=== PATIENT | female | born 1955 | race Caucasian/White ===

== ENCOUNTER 2019-10-21 19:23 | Inpatient (IN) | payer MEDICARE, OTHER ==
[~2019-10-21] VITALS: Ht 152.4 cm; Wt 55.3 kg
--- NOTE | 2019-10-21 19:35 | NUR ---
Patient brought in via ambulance, from [facility] for Psych medical clearance. Pt has been placed on a 5150 hold for being gravely disabled. Pt was found in a busy traffic street, disoriented and confused, did not know where to go by the police officers. Work up done at [facility], aramisn was given in [place] for UTI. and sent here for psych admission. At this time, patient is awake, alert and verbally responsive. Pleasant and calm at this time. She is oriented x 1-2, to the year. She knows her name, but she wants to be referred to as "Prailing". Does not know where she is and states that she is here for a physical check up. All VS taken and stable. Not in acute respiratory distress. Respirations even and unlabored. No apparent Gi/Gu issues. No skin injuries noted. Fall and safety precautions in place. No suicidal or homicidal ideation at this time. Will continue to monitor.
--- NOTE | 2019-10-21 19:39 | NUR ---
Dr Siddiqui at bedside for MSE.
[2019-10-21] MEDS ORDERED: METF-442 PO (19:48)
[2019-10-21] MEDS ORDERED: SIMV-46 PO (19:48)
[2019-10-21] MEDS ORDERED: ZOLP5TAB8 PO (19:48)
[2019-10-21] MEDS ORDERED: LISI-603 PO (19:48)
--- NOTE | 2019-10-21 19:57 | NUR ---
MHU called for bed, 141 B available for patient. Pt is talking to herself at this time, but no apparent signs of agression to others or posing any danger to self. Will continue to monitor closely 1:1.
--- NOTE | 2019-10-21 20:04 | NUR ---
Patient medically cleared. Admitting MD: Dr. Reyes/Dr. Jake Blackwell. Report given to U for patient.
[2019-10-21] MEDS ORDERED: LORAZEPAM 0.5 MG TABLET PO PRN (20:15)
[2019-10-21] MEDS ORDERED: TEMAZEPAM 7.5 MG CAPSULE PO PRN (20:15)
[2019-10-21] MEDS ORDERED: BLOOD SUGAR DIAGNOSTIC 1 EACH STRIP VI ONE (20:15)
[2019-10-21] MEDS ORDERED: MAG HYDROX/AL HYDROX/SIMETH 30 ML LIQUID UDC PO PRN (20:15)
[2019-10-21] MEDS ORDERED: ACETAMINOPHEN 325 MG TABLET PO PRN (20:15)
[2019-10-21] MEDS ORDERED: MAGNESIUM HYDROXIDE 30 ML LIQUID UDC PO PRN (20:15)
--- NOTE | 2019-10-21 20:37 | NUR ---
Charge Nurse transported patient to MHU, in stable condition via wheelchair. All belongings with patient, listed and accounted for, no contrabands noted.
--- NOTE | 2019-10-21 20:45 | NUR ---
ADVISEMENT AND PATIENT'S RIGHT FOR MENTAL HEALTH IN A FACILITY BOOKLET WERE GIVEN TO PATIENT. SHE CONTINUE IRRITABLE, UNCOOPERATIVE AND UNABLE TO HAVE A MEANINGFUL CONVERSATION WITH PATIENT. WILL CONTINUE TO MONITOR.
[2019-10-21 20:56] VITALS: BP 175/74
--- NOTE | 2019-10-21 21:15 | NUR ---
DR. GRANADOS WAS PAGE RE:NEW ADMISSION AND TO RECONCILE PATIENT'S MEDICATIONS. AWAITING FOR A CALL BACK.
[2019-10-21] MEDS: LORAZEPAM 0.5 MG TABLET PO PRN (21:26)
--- NOTE | 2019-10-22 00:51 | NUR ---
GPS/ 5150 HOLD, NEW ADMIT 64/YRS OLD FEMALE ON 72HRS HOLD STARTING 10/20/2019 AT 1633 TO 10/23/2019 AT 1633. PT IS ASSIGNED TO DR. MALONE, AND CONFIRMED ADMISSION AT 2100. ADMITTING DX: PSYCHOSIS AND POSSIBLY MENTAL DISORDER HISTORY, PT GRAVELY DISABLE. PT IS HOMELESS AND WAS FOUND DISORIENTED WALKING IN AND OUT OF HEAVY TRAFFIC. PT WAS TRANSFER TO [facility] BY OFFICER AND PLACED ON HOLD. PT WAS TREATED WITH ROCEPHIN DUE TO UTI. HX DIAGNOSIS: HTN, DM, HYPERLIPEMIA. . PT ADMISSION PACKAGED AND ADVISEMENT GIVEN BUT PT VERY CONFUSE AND REFUSING INTERVIEW. WAS NOT ABLE TO ASSESS SKIN BUT NOTED SMALL SKIN SCAB ON LEFT LOWER ARM, PT APPEARS SUN TINT AND UNKEMPT. INITIAL BLOOD SUGAR 90/dl. PT REFUSED SHOWER AND WAS VERY RESTLESS, ANGRY AND UNCOOPERATIVE. ATIVAN 1MG WAS GIVEN ORDER PRN. PT A BIT CALM NOW, WILL CONTINUE MONITOR.
--- NOTE | 2019-10-22 06:52 | NUR ---
PT SLEPT FOR 6HRS, AWAKE AND WAS ANGRY OVER STAFFS, CONFUSE AND STILL REFUSED SHOWER. PT ALSO REFUSED MRSA NOSE SWAB.
[2019-10-22 07:30] VITALS: BP 129/67
[2019-10-22] MEDS: LORAZEPAM 0.5 MG TABLET PO PRN (14:48)
[2019-10-22] MEDS ORDERED: LORAZEPAM 2 MG/1 ML VIAL IM ONE (15:00)
[2019-10-22] MEDS ORDERED: HALOPERIDOL LACTATE 5 MG/1 ML VIAL IM ONE (15:00)
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
[2019-10-22] MEDS: SIMVASTATIN 20 MG TABLET PO SCH (21:00)
[2019-10-22] MEDS: TRAZODONE 50 MG TABLET GT SCH (21:00)
--- NOTE | 2019-10-23 02:12 | NUR ---
PATIENT RECEIVED IN BED AWAKE. PATIENT REFUSED VITAL SIGNS AND MEDICATION. PATIENT IS IN AND OUT OF SLEEP. SAFE ENVIRONMENT PROVIDED, FREQUENT ROUNDING, CLUTTER FREE ENVIRONMENT, AND BED ALARM ON WHILE IN BED.
[2019-10-23 07:30] VITALS: BP 122/52
[2019-10-23] MEDS: DIVALPROEX 250 MG TABLET.DR PO SCH ×3 (08:59→17:08)
[2019-10-23] MEDS: LISINOPRIL 20 MG TABLET PO SCH (08:59)
[2019-10-23] MEDS ORDERED: Medication Not On Formulary EA (Metformin Hcl 1,000 MG) PO SCH (09:00)
[2019-10-23] MEDS: METFORMIN HCL 500 MG TABLET PO SCH (09:07)
--- NOTE | 2019-10-23 10:16 | NUR ---
Social Work Family Contact: Patient does not have any family support/contact at this moment.
--- NOTE | 2019-10-23 10:16 | NUR ---
Social Work Initial Discharge Plan: Patient is homeless and does not have a place. Patient does not have any social support at the moment. composite worker will work with the patient and the MD regarding appropriate discharge planning. composite worker will form a safe and proper discharge.
--- NOTE | 2019-10-23 14:18 | NUR ---
Social Work Coordination of Care: leadite worker spoke with admin Lashay ([phone]) from [facility] that this teletypewriter installer sent in patient's H & P psychiatric notes, clinical notes, and medication list. Per Lashay, she will contact this teletypewriter installer.
[2019-10-23 16:00] VITALS: BP 158/75
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
--- NOTE | 2019-10-23 17:30 | NUR ---
Gps/Senior Medical Transcriptionist- Able to stay with her group this pm.Patient claimed her name is Angeliiline(prailine ice cream) and telling staff to not call her Michelle.Reoriented and redirected, ,irritable, gets rude, and tends to argue . Right forearm skin tears redressed, site cleansed with NS pat dry, xerofrom applied, dry dressing,tegaderm. Noted medicHad been in and out of the activity room.ations compliant with min.prompting.
[2019-10-23] MEDS: TRAZODONE 50 MG TABLET GT SCH (20:28)
[2019-10-23] MEDS: SIMVASTATIN 20 MG TABLET PO SCH (20:28)
[2019-10-23 20:31] VITALS: BP 161/75
--- NOTE | 2019-10-23 21:42 | NUR ---
GPS/ PT NOTED RESTING IN BED, ALERT AND RESPOND TO NAME. PT LATER AWAKE AND WAS NOTED HAVING VERBAL EXCHANGE WITH ROOM MATE, PT IS VERY CONFUSE, DENIED HER NAME, REQUESTING TO BE CALLED A DIFFERENT NAME. PT EASILY IRRITABLE AND VERY ARGUMENTATIVE. REDIRECT AND CONTINUE TO MONITOR AND ENCOURAGED TO VENT FEELINGS.
--- NOTE | 2019-10-24 06:33 | NUR ---
PT SLEPT 6.30MINS DURING SHIFT.
[2019-10-24] MEDS: METFORMIN HCL 500 MG TABLET PO SCH (07:30)
[2019-10-24] MEDS: DIVALPROEX 250 MG TABLET.DR PO SCH ×3 (08:57→16:52)
[2019-10-24] MEDS: LISINOPRIL 20 MG TABLET PO SCH (09:09)
--- NOTE | 2019-10-24 09:35 | NUR ---
Social Work Firearms Report: Right Of Way Clearer completed and submitted a [employer] firearms report for 5250 grave disability certification. A copy of report has been placed in patient chart.
--- NOTE | 2019-10-24 12:55 | NUR ---
Gps/Golf Sales Manager- Stayed in the dinning room during her lunch, but patient noted talking to herself, confused , incoherent .Instructed to focus in eating her lunch. Hesitancy in taking her routine pm depakote explained to patient rational of her med.
--- NOTE | 2019-10-24 15:26 | NUR ---
Social Work Individual Therapy Note: conversion worker met with patient for brief counseling and assessed for being combative and aggressive. Patient presented tearful and was emotional. Patient stated that she is upset because she is unable to use her computer to check her application on [employer]. This grant writer informed that she may use a phone to contact [facility] to find out her results. conversion worker actively listened and provided emotional support. Addendum: 10/24/19 at 1531 by RUBÉN MOCK Disregard note input is for wrong patient.
--- NOTE | 2019-10-24 15:32 | NUR ---
Social Work Individual Therapy Note: blade worker met with patient for brief counseling and assessed for being combative and aggressive. Per patient, she refused to conversate with this poem writer and stated that she doesn't want to talk to this poem writer. Patient presented irritable and agitated. This poem writer will follow up.
--- NOTE | 2019-10-24 17:00 | NUR ---
Gps/Sales Professional Bilingual- Informed patient the need to get her nares swab for MRSA test, patient stated" I told you many time already ithat i dont want to, period, i refused"!
[2019-10-24] MEDS: TRAZODONE 50 MG TABLET GT SCH (20:45)
[2019-10-24] MEDS: SIMVASTATIN 20 MG TABLET PO SCH (20:45)
[2019-10-25 07:30] VITALS: BP 145/90
[2019-10-25] MEDS: METFORMIN HCL 500 MG TABLET PO SCH ×2 (07:30→08:27)
[2019-10-25] MEDS: risperiDONE 0.5 MG TABLET PO SCH ×2 (08:27→20:07)
[2019-10-25] MEDS: DIVALPROEX 250 MG TABLET.DR PO SCH ×3 (08:27→16:07)
[2019-10-25] MEDS: LISINOPRIL 20 MG TABLET PO SCH (08:27)
[2019-10-25 10:38] LABS: *BILIRUBIN,URIN NEGATIVE (NEGATIVE); *BLOOD, URINE NEGATIVE (NEGATIVE); *CLARITY,URINE CLEAR (CLEAR); *COLOR,URINE YELLOW (YELLOW); *KETONES,URINE TRACE (NEGATIVE); *UROBILINOGEN,URINE 0.2 E.U./dl (NORMAL); LEUKOCYTE ESTERASE ,URINE 1+ (NEGATIVE); NITRITE, URINE NEGATIVE (NEGATIVE); UGLUCOSE NEGATIVE (NEGATIVE)
--- NOTE | 2019-10-25 10:41 | NUR ---
RECEIVED PATIENT AOX1, CONFUSED, TALKING NON SENSICAL MATTER, PATIENT DELUSIONAL SAYING ANOUT DEMONS AND ANGELS, PATIENT ALSO HAS DRESSING ON RIGHT FOREARM, CHANGE DRESSING AND TOOK PICTURE AND PUT IN THE CHART, PATIENT WALKING IN THE HALLWAY , CALM AND COOPERATIVE
[2019-10-25 10:59] LABS: RBC,URINE 0-3 /HPF (0-3)
[2019-10-25 11:00] LABS: BACTERIA,URINE NONE SEEN /HPF (NONE SEEN); SQUAMOUS EPITHELIAL CELL,UR MODERATE /HPF (NONE SEEN)
[2019-10-25] MEDS: CEphaleXIN 500 MG CAPSULE PO SCH ×2 (12:10→20:07)
[2019-10-25 15:52] VITALS: BP 132/78
--- NOTE | 2019-10-25 17:42 | NUR ---
collected urine , send to labs , UA result in called and spoke with BISHOP jackson with orders made and carried out , patient made aware of the new medication, patient started on ATB therapy for UTI, encourage to drink more water , will continue monitor
[2019-10-25] MEDS: TRAZODONE 50 MG TABLET GT SCH (20:07)
[2019-10-25] MEDS: SIMVASTATIN 20 MG TABLET PO SCH (20:07)
--- NOTE | 2019-10-25 20:15 | NUR ---
RECEIVED PATIENT IN THE HALLWAY. SHE IS NOTED A/O X 1. SHE IS ABLE TO AMBULATE WITH STEADY GAIT. SHE IS NOTED LESS IRRITABLE AND LESS WITHDRAWN. ABLE TO ACCEPT CARE AT THIS TIME. SHE IS ABLE TO ANSWER SOME QUESTIONS. POOR INSIGHT AND JUDGMENT IS NOTED TO THE REASON FOR HER ADMISSION TO MHU. PATIENT. PATIENT DENIED SI/VH/AH/VH. HOWEVER, PATIENT NOTED LABILE AND TANGENTAL. SHE IS REASSURED FOR HER SAFETY. V/S STABLE AT THIS TIME. SAFETY AND FALL PRECAUTION IN PLACE. PATIENT IS ENCOURAGE TO VERBALIZED FEELINGS. WILL CONTINUE TO MONITOR.
[2019-10-25 20:32] VITALS: BP 144/72
--- NOTE | 2019-10-26 06:06 | NUR ---
Patient slept for approx. 8 hrs through the night. She is noted less irritable. She is compliant with medication regiment at this time. will continue to monitor.
[2019-10-26 07:30] VITALS: BP 108/50
[2019-10-26] MEDS: METFORMIN HCL 500 MG TABLET PO SCH (07:39)
[2019-10-26] MEDS: CEphaleXIN 500 MG CAPSULE PO SCH ×2 (08:05→20:19)
[2019-10-26] MEDS: DIVALPROEX 250 MG TABLET.DR PO SCH ×3 (08:05→16:16)
[2019-10-26] MEDS: risperiDONE 0.5 MG TABLET PO SCH ×2 (08:05→20:19)
[2019-10-26] MEDS: LISINOPRIL 20 MG TABLET PO SCH (08:05)
--- NOTE | 2019-10-26 08:22 | NUR ---
GPS: received patient AOx1, patient calm and cooperative , patient has her dressing on her Right Forearm intact, compliant with medication, denies any distress ant this time, will continue monitor
[2019-10-26 16:17] VITALS: BP 134/72
--- NOTE | 2019-10-26 17:47 | NUR ---
patient calm and redirectable, patient seen responding to internal stimuli, with delusion about demons, seen talking to her self , patient compliant with medication ,and seen interacts well with roommates and other patient, patient easily irritable and needed to set limitation with behavior and have reality orientation everytime, will continue monitor
[2019-10-26 20:12] VITALS: BP 148/89
[2019-10-26] MEDS: SIMVASTATIN 20 MG TABLET PO SCH (20:19)
[2019-10-26] MEDS: TRAZODONE 50 MG TABLET PO SCH (20:19)
--- NOTE | 2019-10-27 06:14 | NUR ---
GPS: Pt.slept for only 2.30 minutes despite taking Restoril 7.5mg around 2220. Remains paranoid,suspicious,bizarre and non-sensical. No increased agitation noted. Intrusive at times but manageable. Safety emphasized. Will continue to monitor. Addendum: 10/27/19 at 0618 by GWEN CHOI LVN CORRECTION: Pt.slept for 3.30.
[2019-10-27 07:30] VITALS: BP 142/83
[2019-10-27] MEDS: METFORMIN HCL 500 MG TABLET PO SCH (08:20)
[2019-10-27] MEDS: DIVALPROEX 250 MG TABLET.DR PO SCH ×3 (08:20→16:43)
[2019-10-27] MEDS: risperiDONE 0.5 MG TABLET PO SCH (08:20)
[2019-10-27] MEDS: CEphaleXIN 500 MG CAPSULE PO SCH ×2 (08:21→20:23)
[2019-10-27] MEDS: LISINOPRIL 20 MG TABLET PO SCH (08:21)
--- NOTE | 2019-10-27 09:37 | NUR ---
Social Work Note: workers' compensation mediator met with patient to discuss discharge planning. This sign writer letterer or painter asked if patient would want a correction. Per patient, she agreed for this sign writer letterer or painter to find a correction.
--- NOTE | 2019-10-27 09:48 | NUR ---
Social Work Note: Patient's psychiatrist Dr. Lucero from [facility] ([phone]) contacted this service writer advisor and stated that patient needs a SNF. This service writer advisor assured that this service writer advisor is working on finding a placement for the patient and will keep him informed.
--- NOTE | 2019-10-27 10:30 | NUR ---
Social Work Coordination of Care: Per Ralph man, patient has been accepted to [facility] ([phone]).
--- NOTE | 2019-10-27 11:35 | NUR ---
Social Work Substance Abuse Intervention Note: Patient was provided with a brief substance abuse intervention and referred to [facility] ([phone]), [facility] ([phone]), and [facility] ([phone]).
--- NOTE | 2019-10-27 12:25 | NUR ---
GPS: received patient AOx1, confused, responding with internal stimuli, patient compliant with medication , will continue monitor
--- NOTE | 2019-10-27 13:17 | NUR ---
Social Work Individual Therapy Note: bushel worker met with patient for brief counseling and assessed for being combative and aggressive. Patient refers to be called Prailine. Patient stated that when she prays she feels "better" and that praying helps. This insurance underwriter actively listened and provided emotional support.
[2019-10-27 15:13] VITALS: BP 138/84
[2019-10-27] MEDS: TRAZODONE 50 MG TABLET PO SCH (20:23)
[2019-10-27] MEDS: risperiDONE 1 MG TABLET PO SCH (20:23)
[2019-10-27] MEDS: SIMVASTATIN 20 MG TABLET PO SCH (20:23)
--- NOTE | 2019-10-28 06:20 | NUR ---
GPS: Pt.slept for 4.30 only last night . Refused Restoril 7.5mg when offered for insomnia. Still guarded,suspicious and non-sensical. No increased agitation noted. Re-directed prn. Fall precautions observed.
[2019-10-28 07:30] VITALS: BP 106/70
[2019-10-28] MEDS: METFORMIN HCL 500 MG TABLET PO SCH (07:30)
[2019-10-28] MEDS: DIVALPROEX 250 MG TABLET.DR PO SCH ×3 (09:06→16:01)
[2019-10-28] MEDS: risperiDONE 0.5 MG TABLET PO SCH (09:06)
[2019-10-28] MEDS: CEphaleXIN 500 MG CAPSULE PO SCH ×2 (09:06→20:09)
[2019-10-28] MEDS: LISINOPRIL 20 MG TABLET PO SCH (09:07)
--- NOTE | 2019-10-28 09:17 | NUR ---
pt in hallway ambulating with ot. gait steady pt unable to concentrate on topic. no acute distress noted will cont to monitor
[2019-10-28 16:00] VITALS: BP 191/71
--- NOTE | 2019-10-28 17:51 | NUR ---
PT SHOWS NO S/S OPF ACUTE DISTRESS WILL CONT TO MONITOR.
[2019-10-28] MEDS: risperiDONE 1 MG TABLET PO SCH (20:09)
[2019-10-28] MEDS: SIMVASTATIN 20 MG TABLET PO SCH (20:09)
[2019-10-28] MEDS: TRAZODONE 50 MG TABLET PO SCH (20:10)
[2019-10-28 20:27] VITALS: BP 157/79
--- NOTE | 2019-10-28 21:00 | NUR ---
RECEIVED PATIENT IN HER ROOM SITTING IN HER BED. SHE INITIALLY WAS NOTED IRRITABLE, EVASIVE AND REFUSING TO TALK TO THIS NET APPLICATIONS DEVELOPER. HOWEVER, AFTER A FEW MINUTES, PATIENT WAS NOTED CALM AND COOPERATIVE. SHE WAS NOTED WITH FLIGHT OF IDEAS, LAUGHING AT TIMES. PATIENT CONTINUE A/O X 1 POOR INSIGHT AND JUDGMENT IS NOTED FOR HER ADMISSION TO [facility]. PATIENT IS REASSURED FOR HER SAFETY, SAFETY AND FALL PRECAUTION IN PLACE. V/S STABLE. WILL CONTINUE TO MONITOR.
[2019-10-29] MEDS: CEphaleXIN 500 MG CAPSULE PO SCH ×2 (08:55→20:14)
[2019-10-29] MEDS: DIVALPROEX 250 MG TABLET.DR PO SCH ×3 (08:55→17:07)
[2019-10-29] MEDS: risperiDONE 0.5 MG TABLET PO SCH ×2 (08:55→09:00)
[2019-10-29] MEDS: METFORMIN HCL 500 MG TABLET PO SCH (08:55)
[2019-10-29] MEDS: LISINOPRIL 20 MG TABLET PO SCH (08:57)
[2019-10-29] MEDS: risperiDONE 1 MG TABLET PO SCH ×2 (08:59→20:26)
[2019-10-29 09:30] VITALS: BP 183/64
[2019-10-29] MEDS ORDERED: CLONIDINE HCL 0.2 MG TABLET PO PRN (10:30)
[2019-10-29 16:07] VITALS: BP 143/70
[2019-10-29] MEDS: TRAZODONE 50 MG TABLET PO SCH (20:15)
[2019-10-29] MEDS: SIMVASTATIN 20 MG TABLET PO SCH (20:15)
--- NOTE | 2019-10-29 20:15 | NUR ---
Received patient in her room, initiate contact with nurse, hyperverbal, cooperative, easily directable, med compliant. Interacts with her peers. Patient is easily irritable. Patient will remain in a psych facility for further evaluation and treatment.
--- NOTE | 2019-10-29 20:25 | NUR ---
SCARFER OPERATOR reported that the blood pressure of the patient was elevated (173/80). Rechecked patients blood pressure and it was 149/80. Patient asymptomatic. Patient denies any pain or discomfort. Reposition the patient. Will continue to monitor patient blood pressure.
[2019-10-29 20:40] VITALS: BP 173/80
[2019-10-30] MEDS: LORAZEPAM 0.5 MG TABLET PO PRN (04:11)
[2019-10-30 08:02] VITALS: BP 140/59
[2019-10-30] MEDS: METFORMIN HCL 500 MG TABLET PO SCH (08:38)
[2019-10-30] MEDS: risperiDONE 0.5 MG TABLET PO SCH (08:46)
[2019-10-30] MEDS: DIVALPROEX 250 MG TABLET.DR PO SCH ×3 (08:46→16:31)
[2019-10-30] MEDS: CEphaleXIN 500 MG CAPSULE PO SCH (08:47)
[2019-10-30] MEDS: LISINOPRIL 20 MG TABLET PO SCH (08:47)
--- NOTE | 2019-10-30 15:05 | NUR ---
Social Work Individual Therapy Note: generator worker met with patient for brief counseling and assessed for being combative and aggressive. Patient is isolative and guarded. Patient stated that she is not combative or aggressive towards "anyone". Patient refused to conversate with this senior technical writer. generator worker attempted to provide alternative coping skills on how to handle anger during stressful situation, however; patient refused to listen. Patient asked for this senior technical writer to leave. generator worker actively listened. This senior technical writer will follow-up with patient.
--- NOTE | 2019-10-30 17:00 | NUR ---
Gps/Decay Control Operator- Noted responding to internal stimuli, stayed in her room talking to herself. She claimed her name is not Michelle . Compliant with pm meds. Refused to have right f/a skin tear redressed, site LATONIA. granulation noted.
[2019-10-30 20:00] VITALS: BP 134/62
[2019-10-30] MEDS: SIMVASTATIN 20 MG TABLET PO SCH (20:29)
[2019-10-30] MEDS: risperiDONE 1 MG TABLET PO SCH (20:29)
--- NOTE | 2019-10-30 23:14 | NUR ---
PATIENT RECEIVED IN BED AWAKE. PATIENT COMPLAINT WITH MEDICATION. IN NO APPARENT DISTRESS WILL CONTINUE TO MONITOR. PATIENT IS EASILY IRRITABLE. BED IN LOWEST POSITION, BED LOCKED, AND BED ALARM ON WHILE IN BED. RESPONDING TO INTERNAL STIMULI AND CONTINUES TO REFUSE TREATMENT TO SKIN TEAR.
[2019-10-31] MEDS: LISINOPRIL 20 MG TABLET PO SCH (09:00)
[2019-10-31] MEDS: risperiDONE 0.5 MG TABLET PO SCH (09:52)
[2019-10-31] MEDS: DIVALPROEX 250 MG TABLET.DR PO SCH ×3 (09:52→17:00)
[2019-10-31] MEDS: METFORMIN HCL 500 MG TABLET PO SCH (10:03)
[2019-10-31 15:54] VITALS: BP 133/78
[2019-10-31] MEDS: SIMVASTATIN 20 MG TABLET PO SCH (20:30)
[2019-10-31] MEDS: risperiDONE 1 MG TABLET PO SCH (20:30)
[2019-10-31 21:13] VITALS: BP 138/76
--- NOTE | 2019-11-01 06:58 | NUR ---
GPS/ PT WAS RESTING COMFORTABLE WITH FEW EPISODE OF FORGETFUL AND DELUSIONAL. COOPERATIVE WITH MEDS. AND SLEPT 4.30MINS DURING SHIFT.
[2019-11-01] MEDS: risperiDONE 0.5 MG TABLET PO SCH ×2 (08:00→12:50)
[2019-11-01] MEDS: LISINOPRIL 20 MG TABLET PO SCH (09:00)
[2019-11-01] MEDS: METFORMIN HCL 500 MG TABLET PO SCH (09:37)
[2019-11-01] MEDS: DIVALPROEX 250 MG TABLET.DR PO SCH ×3 (09:38→16:53)
[2019-11-01 16:00] VITALS: BP 120/73
--- NOTE | 2019-11-01 17:57 | NUR ---
Gps/Wind Commissioning Technician- Stayed in her room most of the afternoon, noted talking to herself, staring at the wall. .Discouraged patient from closing her door, claimed she cant stand the yelling and noise at the hallway.Had been compliant with her routine med.
[2019-11-01] MEDS: SIMVASTATIN 20 MG TABLET PO SCH (20:43)
[2019-11-01] MEDS ORDERED: risperiDONE 2 MG TABLET PO SCH (21:00)
[2019-11-01] MEDS ORDERED: risperiDONE 1 MG TABLET PO SCH (21:00)
--- NOTE | 2019-11-02 06:09 | NUR ---
GPS: Pt.continues to refuse scheduled blood draw for today despite explanation of importance. Easily irritable when being persuaded. Risks vs benefits explained although unsuccessful.
[2019-11-02 07:30] VITALS: BP 129/65
[2019-11-02] MEDS: DIVALPROEX 250 MG TABLET.DR PO SCH ×3 (08:43→17:38)
[2019-11-02] MEDS: METFORMIN HCL 500 MG TABLET PO SCH (08:43)
[2019-11-02] MEDS: LISINOPRIL 20 MG TABLET PO SCH (08:44)
--- NOTE | 2019-11-02 12:01 | NUR ---
Gps/Manager Business Intelligence Remains to have irritability , prompted to take routine am, meds. yelling at the Nurse not to touch her meds. wants to read labels , and want her to open wrappers., reviewed w/ patient rationale , yells "i know"
[2019-11-02 16:00] VITALS: BP 116/70
[2019-11-02] MEDS: SIMVASTATIN 20 MG TABLET PO SCH (20:43)
[2019-11-02] MEDS: OLANZAPINE ZYDIS 5 MG TAB.RAPDIS PO SCH (20:44)
[2019-11-02 20:46] VITALS: BP 147/88
--- NOTE | 2019-11-02 21:28 | NUR ---
GPS/RN: RECEIVED PT IN HER ROOM, A/O X1. PT EASILY ANGRY WITH STAFFS AND REFUSED VITAL SIGN CHECK. PT NOTED WITH ON AND OFF DELUSIONAL. PT WAS ASKING TO SPEAK WITH OFFICER WHEN HACK SAW OPERATOR WALKED BY. EFFORT WAS MADE TO RE-ORIENT PT BUT PT WAS TOO UPSET AT THAT MOMENT. MONITOR AND CONTINUE OBSERVATION ONGOING. COOPERATIVE WITH ROUTINE MEDICATIONS, NOW CALM IN BED.
--- NOTE | 2019-11-03 01:09 | NUR ---
PT V/S WAS CHECKED AFTER PT CALMED DOWN. IN BED ASLEEP AT THIS TIME.
[2019-11-03 07:30] VITALS: BP 114/59
[2019-11-03] MEDS: DIVALPROEX 250 MG TABLET.DR PO SCH ×3 (09:20→17:36)
[2019-11-03] MEDS: LISINOPRIL 20 MG TABLET PO SCH (09:22)
[2019-11-03] MEDS: METFORMIN HCL 500 MG TABLET PO SCH (09:33)
--- NOTE | 2019-11-03 14:33 | NUR ---
Social Work Individual Therapy Note: can intake worker met with patient for brief counseling and assessed for being combative and aggressive. Patient is isolative and withdrawn. can intake worker attempted to conversate with patient, however; patient refused to conversate with this data analyst report writer. Patient stated to this data analyst report writer to "get out". This data analyst report writer was unable to have a meaningful conversation with patient.
[2019-11-03] MEDS: OLANZAPINE ZYDIS 5 MG TAB.RAPDIS PO SCH ×2 (20:45→21:00)
[2019-11-03] MEDS: SIMVASTATIN 20 MG TABLET PO SCH ×2 (20:45→21:00)
[2019-11-04 07:50] VITALS: BP 141/72
[2019-11-04] MEDS: METFORMIN HCL 500 MG TABLET PO SCH (08:03)
[2019-11-04] MEDS: DIVALPROEX 250 MG TABLET.DR PO SCH ×3 (08:03→16:55)
[2019-11-04] MEDS: LISINOPRIL 20 MG TABLET PO SCH (08:04)
[2019-11-04] MEDS: OLANZAPINE ZYDIS 5 MG TAB.RAPDIS PO SCH (20:14)
[2019-11-04] MEDS: SIMVASTATIN 20 MG TABLET PO SCH (20:14)
[2019-11-04 20:54] VITALS: BP 188/88
[2019-11-04 21:30] VITALS: BP 104/55
--- NOTE | 2019-11-05 03:45 | NUR ---
GPS/RN: RECEIVED A/O X1. PER ENDORSEMENT PT HAD REFUSED CARE AND ROUTINE MEDICATIONS. V/S CHECKED AND NOTED INCREASE BLOOD PRESSURE AT 188/88. PRN ANTIHYPERTENSIVE ORDER ADMINISTERED AND RECHECKED ONE HOUR LATER NOTED EFFECTIVE DOWN TO 104/55. PT CONTINUE NOTED WITH DELUSIONAL. RE-ORIENT PT TO REALITY . MONITOR AND CONTINUE OBSERVATION. COOPERATIVE WITH ROUTINE MEDICATIONS TONIGHT.
[2019-11-05 07:30] VITALS: BP 127/52
[2019-11-05] MEDS: DIVALPROEX 250 MG TABLET.DR PO SCH ×3 (09:40→17:47)
[2019-11-05] MEDS: LISINOPRIL 20 MG TABLET PO SCH (09:41)
[2019-11-05] MEDS: METFORMIN HCL 500 MG TABLET PO SCH (09:41)
--- NOTE | 2019-11-05 15:51 | NUR ---
Social Work Individual Therapy Note: production utility worker met with patient for brief counseling and assessed for being combative and aggressive. Patient is paranoid and delusional. production utility worker attempted to conversate with patient, however; patient refused to conversate with this ad writer. Patient stated that she wants to be left alone and told this ad writer that "she does not want to talk or engage in a conversation with this ad writer". This ad writer was unable to have a meaningful conversation with patient.
[2019-11-05 16:00] VITALS: BP_SYST 151; BP_DIAS 54; BP_DIAS 66
[2019-11-05] MEDS: SIMVASTATIN 20 MG TABLET PO SCH (20:17)
[2019-11-05] MEDS: OLANZAPINE ZYDIS 5 MG TAB.RAPDIS PO SCH (20:17)
--- NOTE | 2019-11-05 21:30 | NUR ---
Received patient in her room, isolative, paranoid, guarded, poor insight, and poor judgement. Patient is med compliant. No behavioral issue. Will remain in a psych facility for further evaluation and treatment.
[2019-11-06 07:30] VITALS: BP 158/71
[2019-11-06] MEDS: METFORMIN HCL 500 MG TABLET PO SCH (08:32)
[2019-11-06 08:33] VITALS: BP 158/71
[2019-11-06] MEDS: LISINOPRIL 20 MG TABLET PO SCH (08:33)
[2019-11-06] MEDS: DIVALPROEX 250 MG TABLET.DR PO SCH ×2 (08:33→13:01)
--- NOTE | 2019-11-06 09:32 | NUR ---
Social Work Discharge Note: [place] [facility] [address] [place] [address]; ([phone]) via Ambulance transportation at 1:00PM. Forestry Fire Aide spoke with Cindy, Brick Loader at [facility] ([phone]) who stated patient will be accepted at facility today. Patient is alert and oriented x1-2, and is not able to plan for self-care at this time, but is willing to accept care provided for her at the facility. Patient denies any suicidal or homicidal ideations. Patient is aware and agreeable with discharge plans. Patient does not have any family members at the moment. Patient will continue to follow-up with her (Psychiatrist) Dr. Low and (Obstetrics Scrub Nurse) Dr. Jara at [facility] to discuss smoking cessation and address substance abuse dependency. Patient was provided with outpatient mental health resources to [facility] , and the [place] [facility] . SW provided patient with a copy of the [facility] homeless directory which provides information on locations for hot meals, sack lunches, food pantries, and showers. SW provided a list of mental health clinics: [facility] [address] [place] [address], ; [facility] [address] [place] [address], ([phone]); [facility] [place] [address], ([phone]); a list of medical clinics: [facility] [address], [place]. [place], ([phone]); [facility] [address], [place] [address]; [facility] [address] [place] [address], ([phone]); and a list of substance abuse programs: [facility] Substance Abuse Self-helpline ([phone]); [facility] ([phone]); [facility] ([phone]); [facility] ([phone]); [facility] ([phone]); [facility] ([phone]); [facility] ([phone]). Patient signed the homeless waiver upon discharge and copy was placed in the chart.
--- NOTE | 2019-11-06 12:25 | NUR ---
Gps/River Tester- Called [facility] tried to give report, per Yakelin Morel, will return call, need to check for approval to the facility , informed bulk picker time at 1300.
--- NOTE | 2019-11-06 13:16 | NUR ---
Gps/Supervisor Prepress- All belongings given back to patient .Well informed of her discharge., awaiting ambulance filler picker scheduled at 1300.
--- NOTE | 2019-11-06 13:17 | NUR ---
Gps/Bucket Pusher- [facility] called back , report given to Adriel Galeas. . All belongings given back to patient. Discharged to [facility], via ambulance. in good spirit with no new c/o offered.
== END 2019-11-06 13:45 | DRG 885 ==
LOC: ER 19:27 → GPS 20:03
PROVIDERS: ADMIT Psychiatry & Neurology Psychiatry; ATTEND Registered Nurse
DX: F25.0 Schizoaffective disorder, bipolar type (principal); N39.0 Urinary tract infection, site not specified; F39 Unspecified mood [affective] disorder; E78.5 Hyperlipidemia, unspecified; E11.9 Type 2 diabetes mellitus without complications; Z79.84 Long term (current) use of oral hypoglycemic drugs; Z59.0 Homelessness; I10 Essential (primary) hypertension; F09 Unspecified mental disorder due to known physiological condition; Z73.6 Limitation of activities due to disability; Z87.440 Personal history of urinary (tract) infections
CPT/HCPCS: 36415; 71045; 80164; 87086; 93005; A4663; J1630; J2060; J3490